=== PATIENT | female | born 1950 | race Caucasian/White ===

== ENCOUNTER 2017-07-03 21:46 | Emergency (ER) | payer OTHER, MEDICARE | END 2017-07-04 01:14 | disposition home or self-care (01) | LOC: FTE 21:46 | DX: H60.91 Unspecified otitis externa, right ear (principal); I10 Essential (primary) hypertension | CPT/HCPCS: 99284; Z7502 ==

== ENCOUNTER 2018-10-11 10:37 | Emergency (ER) | payer MEDICARE, OTHER | END 2018-10-11 11:39 | disposition home or self-care (01) | LOC: FTE 10:37 | DX: H92.01 Otalgia, right ear (principal); I10 Essential (primary) hypertension | CPT/HCPCS: 99283 ==

== ENCOUNTER 2018-10-14 12:51 | Emergency (ER) | payer MEDICARE, OTHER ==
[2018-10-14] MEDS: FLUCONAZOLE 150 MG TAB PO (13:41)
== END 2018-10-14 14:30 | disposition home or self-care (01) ==
LOC: FTE 12:51
DX: R05 Cough (principal); I10 Essential (primary) hypertension; B37.0 Candidal stomatitis
CPT/HCPCS: 71045; 99283-25